=== PATIENT | male | born 1955 | race Hispanic/Latino ===

== ENCOUNTER 2017-05-03 11:43 | Outpatient (CLI) | payer OTHER ==
--- NOTE | 2017-05-03 14:22 | MRI ---
MRI BRAIN WITHOUT CONTRAST: HISTORY: Numbness on the left side of the body for two weeks. COMPARISON: None. TECHNIQUE: Multiplanar, multisequence MR images were obtained of the brain without contrast. FINDINGS: The brain demonstrates normal signal intensity on all obtained sequences. No restricted diffusion i s seen to suggest an acute infarction. There is no evidence of hydrocephalus, intracranial hemorrha ge, or extraaxial fluid collection. The expected flow voids are present. The corpus callosum, pituitary, and craniocervical junction ar e unremarkable. The calvarium and overlying soft tissues are unremarkable. The visualized paranasal sinuses and mas toid air cells are well aerated. IMPRESSION: No evidence of acute intracranial abnormality. POS: [facility]
== END 2017-05-03 11:44 | disposition home or self-care (01) ==
LOC: MRI 11:43
PROVIDERS: ATTEND Psychiatry & Neurology Neurology
DX: R20.0 Anesthesia of skin (principal)
CPT/HCPCS: 70551